=== PATIENT | male | born 1990 | race Caucasian/White ===

== ENCOUNTER 2023-07-08 07:59 | Inpatient (IN) | payer BC, SELFPAY ==
[2023-07-08 08:01] VITALS: BP 144/91; PULSE 72; TEMP 36.9; O2SAT 98; BMI 22.6
--- NOTE | 2023-07-08 08:09 | ED.C_ITS ---
HPI - Psych 2 General: Chief Complaint: Psychiatric Symptoms Stated Complaint: SI Time Seen by Provider: 07/08/23 08:01 Source: patient and EMS Mode of arrival: EMS Limitations: no limitations History of Present Illness: 33-year-old male states he has a history of depression anxiety along with bipolar states that he does not see a psychiatrist is not on any meds currently he states he had increasing severe depression anxiety last week and feels like he is just had a mental breakdown he states that last 2 days has been having severe thoughts of self-harm he does appear quite anxious here he denies any worsening proving factors. Associated symptoms: Reports depression and suicidal ideation Review of Systems 2 Const: Denies: fever(s), chills, body aches or change in appetite ENMT: Denies: throat pain or dental pain Card: Denies: chest pain Resp: Denies: dyspnea GI: Denies: abdominal pain, nausea, vomiting or diarrhea Musc: Denies: neck pain or back pain Skin/Breast: Denies: rash Neuro: Denies: headache(s) Psych: Reports: anxiety, depression and suicidal ideation Physical Exam 2 Const: COMMON NORMALS: no acute distress, patient oriented x3 and healthy appearing HENMT: COMMON NORMALS: normocephalic and atraumatic HEAD & SCALP: n ormocephalic and atraumatic Neck/C-Spine: COMMON NORMALS: full ROM and supple Chest: COMMONS NORMALS: normal inspection of the chest Resp: COMMON NORMALS: normal respiratory effort Cardio: COMMON NORMALS: regular rate RATE: regular rate Extremity: COMMON NORMALS: normal to inspection and full ROM Neuro: COMMON NORMALS: patient oriented x3, moves all extremities and no focal motor deficits Psych: COMMON NORMALS: mental status grossly normal, Normal thought process present and cooperative MOOD & AFFECT: Yes depressed mood, Yes anxious and Yes tearful THOUGHT PROCESS: Normal thought process present THOUGHT CONTENT: Yes Suicidality present Skin: COMMON NORMALS: no rashes or lesions noted and no wounds GENERAL SKIN EXAM: no rashes or lesions noted Course 2 Vital Signs: Vital signs: Vital Signs Temperature 98.5 F 07/08/23 08:01 Pulse Rate 72 07/08/23 08:01 Blood Pressure 144/91 07/08/23 08:01 Pulse Oximetry 98 07/08/23 08:01 Oxygen Delivery Me thod Room Air 07/08/23 08:01 MDM - Psych Medical Decision Making Patient presents here depression anxiety along with SI patient is medically cleared I spoke to psychiatrist will admit at this time. Medical Records I reviewed the patient's medical records. Lab Data I reviewed the patient's lab results. 07/08/23 09:05 07/08/23 09:05 Laboratory Results Urine Opiates Screen Negative ng/mL (Negative) 07/08/23 08:30 Ur Barbiturates Screen Negative ng/mL (Negative) 07/08/23 08:30 Ur Phencyclidine Scrn Negative ng/mL (Negative) 07/08/23 08:30 Ur Amphetamines Screen Negative ng/mL (Negative) 07/08/23 08:30 U Benzodiazepines Scrn Negative ng/mL (Negative) 07/08/23 08:30 Urine Cocaine Screen Negative ng/mL (Negative) 07/08/23 08:30 U Marijuana (THC) Screen Positive ng/mL (Negative) H 07/08/23 08:30 No radiology studies performed this visit Discharge Plan Discharge Patient Disposition: Admitted As Inpatient Admit Provider: Anthony Velasquez Clinical Impression: Suicidal ideation Condition: Stable Coding Level of Care Code ED [employer] for Shaylee Louie
[2023-07-08] MEDS: LORazepam 2 mg Tablet PO (08:31)
[2023-07-08] MEDS: nicotine 21 mg Patch 1 PATCH TRANSDERMA (08:37)
[2023-07-08 08:46] LABS: Amphetamines Screen Urine Negative (Negative); Barbiturates Screen Urine Negative (Negative); Benzodiazepines Screen Urine Negative (Negative); Cocaine Screen Urine Negative (Negative); Opiate Screen Urine Negative (Negative); PCP Screen Urine Negative (Negative); THC Screen Urine Positive (Negative)
[2023-07-08 09:11] LABS: Basophils % 0.3 %; Eosinophils % 0.2 %; Hematocrit 44.6 % (37-53); Lymphocytes # 1.5 10^3/uL (0.8-4.8); Lymphocytes % 16.5 %; Mean Corpuscular HGB Conc 33.4 g/dL (30-55); Mean Corpuscular Hemoglobin 30.3 pg (27-33); Mean Corpuscular Volume 90.7 fl (82-101); Mean Platelet Volume 10.2 fL (7.4-10.4); Monocytes # 0.7 10^3/uL (0.2-0.9); Monocytes % 7.4 %; Neutrophils # 6.68 10^3/uL (1.8-7.7); Neutrophils % 75.3 %; Nucleated Red Blood Cells % 0 %; Platelet Count 263 10^3/cmm (157-399); Red Blood Count 4.92 10^6/uL (3.85-5.65); Red Cell Distribution Width 13.2 % (12.1-15.1); White Blood Count 8.89 10^3/uL (3.29-11.43)
[2023-07-08 09:20] VITALS: BP 122/79; PULSE 71; RESP 17; TEMP 36.7; O2SAT 98
[2023-07-08 09:35] LABS: Alanine Aminotransferase 16 U/L (0-41); Albumin Level 4.8 g/dL (3.5-5.2); Alkaline Phosphatase 95 U/L (40-130); Aspartate Amino Transferase 19 U/L (0-40); Blood Urea Nitrogen 6 mg/dL (6-20); Calcium 8.8 mg/dL (8.5-10.5); Carbon Dioxide 25 mmol/L (22-29); Chloride 97 mmol/L (98-107); Creatinine Clr Calc Pharmacy 116.0855; Globulin 2.3 g/dL (1.3-4.6); Glucose 98 mg/dL (65-115); Osmolality Calculated 276 mOsm/kg (285-295); Sodium 134 mmol/L (136-145); Total Bilirubin 0.7 mg/dL (0.15-1.2); Total Protein 7.1 g/dL (6.6-8.7)
[2023-07-08 09:38] LABS: Acetaminophen < 5.0 ug/mL (10-30); Alcohol Level < 10 mg/dL (0-10); Salicylate < 0.3 mg/dL (3-10)
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
--- NOTE | 2023-07-08 12:37 | PC.NURSE ---
PT NICOTINE PATCH FELL OFF IN THE SHOWER AT 1235.
[2023-07-08 13:57] VITALS: BP 117/70; PULSE 73; RESP 16; TEMP 36.3; O2SAT 98
[2023-07-08] MEDS: acetaminophen 325 mg Tablet 650 MG PO (14:01)
[2023-07-08] MEDS: nicotine 4 mg lozenge MUCOUS MEM (14:48)
[2023-07-08] MEDS: ARIPiprazole 10 mg Tablet 5 MG PO (16:53)
[2023-07-08] MEDS: nicotine 2 mg Gum BUCCAL ×3 (16:54→20:47)
[2023-07-08 20:45] VITALS: BP 145/80; PULSE 81; RESP 18; TEMP 36.5; O2SAT 97
[2023-07-08] MEDS: trazodone 50 mg Tablet PO (21:57)
[2023-07-09 06:00] VITALS: BP 105/69; PULSE 67; RESP 16; TEMP 36.8; O2SAT 98
--- NOTE | 2023-07-09 07:28 | P.NPUHP_ITS ---
Providers/Chief Complaint 2 Admitting Physician: Anthony Velasquez MD Primary Care Provider: Christopher Cheung MD Chief Complaint: SI HPI NPU History of Present Illness Arden Crespo is a 33 year old male who presented to the emergency department with the following report: Chief Complaint: Psychiatric Symptoms Stated Complaint: SI Time Seen by Provider: 07/08/23 08:01 Source: patient and EMS Mode of arrival: EMS Limitations: no limitations History of Present Illness: 33-year-old male states he has a history of depression anxiety along with bipolar states that he does not see a psychiatrist is not on any meds currently he states he had increasing severe depression anxiety last week and feels like he is just had a mental breakdown he states that last 2 days has been having severe thoughts of self-harm he does appear quite anxious here he denies any worsening proving factors. Associated symptoms: Reports depression and suicidal ideation. He presented to the neuropsychiatric unit for definitive treatment of those issues. He presented today reporting: Chief complaint Patient reports experiencing depression and suicidal thoughts. History of the present complaint The patient, born on 1990, reported a history of depression and suicidal thoughts. He has not been hospitalized before for these issues but had outpatient treatment in [place] around 2010, which lasted until his son was about [age] years old. During this period, he was on medication and was seeing a counselor. The diagnosis at that time was bipolar disorder. He has been on Effexor XR and no other medication. He reported tobacco use, smoking about a pack and a half of cigarettes daily. He also reported daily marijuana use, which started about a year ago, but he had smoked off and on before that. He denied any other significant drug use in his life, including cocaine, methamphetamine, hallucinogens, and has never been to rehab or had any drug and alcohol treatment. He has no history of DUI, DWI, or any other charges related to substance use. The patient reported that his symptoms of not being able to sleep but not feeling tired and experiencing irritability started around 2016. He has had long-standing issues with depression, which he cannot remember a time without. His depression is characterized by low mood, feelings of helplessness, hopelessness, worthlessness, difficulty with sleep, low energy, and low appetite. There have been times where he felt like he was not enjoying life anymore and had suicidal thoughts, but he has never acted on these thoughts. He reported self-injurious behavior, including burning himself and hitting his head against things. The patient reported that his anxiety comes and goes, usually triggered when he is very upset with himself or very excited or anxious about something. He also reported feelings of paranoia, feeling like people were out to get him or following him. He occasionally hears and sees things. He denied having significant nightmares or flashbacks representing bad things that have happened in his life, or having intrusive thoughts that are suppressed by doing something specific. The patient is currently and has three biological children. He last saw them on January 03 of the previous year, and the lack of contact is due to conflicts with their mother. He identifies as heterosexual and his longest relationship lasted seven years. 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 He has never been to correction and has no major legal issues. He reported several broken bones but no other health problems. He denied any current thoughts of hurting himself or others and reported feeling well and happy on the day of the consultation. He recently started on Abilify and reported no side effects except for a strong craving for cigarettes. Mental health history Patient has a history of depression and suicidal thoughts. Diagnosed with bipolar disorder in 2010. Has been on Effexor XR. No history of hospitalization or outpatient treatment. Has had self-injurious behavior including burning and hitting self. Reports hearing and seeing things occasionally. Social history Patient is a smoker, consuming a pack and a half of cigarettes daily. Regular cannabis use started a year ago. No alcohol use. Has a history of using pain pills after losing health insurance. No other significant drug use. No history of rehab or drug and alcohol treatment. No legal issues related to substance use. Patient is and has three biological children. Longest job held was as a cook for six to seven years. Currently living in a trailer with and her ex [id number]. No history of correction time or major legal issues. Meds NPU Home Medications Medication Instructions Recorded Confirmed Last Taken Type No Known Home Medications 07/08/23 07/08/23 Unknown History Allergies Allergy/AdvReac Type Severity Reaction Status Date / Time No Known Allergies Allergy Verified 07/08/23 08:11 Mental Status Exam 2 MSE Comments: This is a well-nourished well-developed white male with hospital scrubs on with limited grooming and adequate eye contact. No abnormal movements except for mild psychomotor retardation. Cooperative with exam in mild distress. Speech was increased rate and normal volume. Mood described as anxious, affect congruent. Thought process linear to organized. Thought content: Patient denied any suicidal or homicidal ideations but endorsed suicidal thoughts on admission, there were no delusions reported except for paranoia and paranoia noted, he endorsed some auditory but denied visual hallucinations. Patient reports persistent depression, feelings of helplessness, hopelessness, worthlessness, low energy, low appetite, and suicidal thoughts. Reports occasional visual and auditory hallucinations. Reports anxiety that comes and goes, often associated with self-directed anger or excitement. Reports feeling paranoid and feeling like people are out to get him. No current thoughts of self-harm or harm to others. Attention and concentration appeared intact and memory was mostly reliable but none were formally tested. He is alert and oriented x3. Insight and judgment are limited, impulse control is limited. Vitals/I&O/Wt Last Vital Signs Temp 98.2 F 07/09/23 06:00 Pulse 67 07/09/23 06:00 Resp 16 07/09/23 06:00 BP 105/69 07/09/23 06:00 Pulse Ox 98 07/09/23 06:00 O2 Del Method Room Air 07/09/23 06:00 Weight last 48 hrs Weight 63.503 kg Data NPU 07/08/23 09:05 07/08/23 09:05 A&P Assessment and plan (1) Suicidal ideation: (2) Bipolar disorder: (3) Cannabis use disorder: Plan This is a 33-year-old white male who is unknown to inpatient or outpatient services with [facility] who presents with days without sleeping, irritability, depression and history of possible bipolar diagnosis open to trial of medication. Patient presents with ongoing depression, suicidal thoughts, and occasional hallucinations. History of bipolar disorder. Regular tobacco and cannabis use. Self-injurious behavior reported. 1. With history of possible bipolar disorder will initiate mood stabilizer/Abilify prior to an antidepressant. 2. Continue every 15 minute checks for safety. 3. Encourage individual, group and milieu therapy. 4. Encourage sober living treatment after discharge at the highest level of care to which he is willing to commit. 5. Will obtain collateral information. Involuntary Hold Information 2 96 Hour Hold: 96 Hour Involuntary Admission: Yes 96 Hour Hold Ending Date: 07/13/23 96 Hour Hold Ending Time: 00:01 Attestations NPU 2 Medical Necessity Statement*: Inpatient hospitalization is medically necessary and the clinically appropriate intervention at this time. We will monitor medications and make changes as indicated. He will be in the hospital for over 2 midnights. Likely length of stay 3-5 days. Coding Level of Care Code Acute Code for g Fwd Diagnoses Suicidal ideation R45.851 Bipolar disorder F31.9 Cannabis use disorder F12.90
[2023-07-09] MEDS: nicotine 21 mg Patch 1 PATCH TRANSDERMA (08:11)
[2023-07-09] MEDS: ARIPiprazole 10 mg Tablet PO (08:56)
--- NOTE | 2023-07-09 12:18 | PC.NURSE ---
Patient's nicotine fell after following shower. This nurse disposed of it appropriately.
[2023-07-09] MEDS: nicotine 2 mg Gum BUCCAL ×3 (12:19→18:06)
[2023-07-09 14:00] VITALS: BP 111/68; PULSE 69; RESP 16; TEMP 36.6; O2SAT 99
[2023-07-09 19:29] VITALS: BP 118/68; PULSE 93; RESP 20; TEMP 36.7
[2023-07-09] MEDS: quetiapine 25 mg Tablet 50 MG PO (20:08)
[2023-07-09] MEDS: nicotine 4 mg lozenge MUCOUS MEM (20:08)
[2023-07-10 06:00] VITALS: BP 101/60; PULSE 62; RESP 16; TEMP 36.7; O2SAT 98
[2023-07-10] MEDS: ARIPiprazole 10 mg Tablet PO (08:21)
[2023-07-10] MEDS: nicotine 2 mg Gum BUCCAL ×5 (08:29→18:47)
[2023-07-10] MEDS: acetaminophen 325 mg Tablet 650 MG PO (13:14)
[2023-07-10 14:00] VITALS: BP 116/72; PULSE 102; RESP 20; TEMP 36.6; O2SAT 99
--- NOTE | 2023-07-10 14:45 | W.PM.NPUPNS ---
Subjective NPU Subjective: Patient presented today reporting that he was feeling okay. He reports discussing his treatment with his and both of them feeling strongly that this was a great choice for him with the Abilify reporting that he feels better than he has for a while. We did discuss our previous conversation about Prozac or some other antidepressant and currently he reports that he is not feeling depressed to any significant degree and at this point would prefer to stick with the Abilify and then see if he still needs augmentation with an antidepressant. We discussed that being reasonable and he denied any side effects of the medication. Mental Status Exam MSE Comments: This is a well-nourished well-developed white male with hospital scrubs on with limited grooming and adequate eye contact. No abnormal movements except for mild psychomotor retardation. Cooperative with exam in mild distress. Speech was increased rate and normal volume. Mood described as a little better, affect congruent. Thought process linear to organized. Thought content: Patient denied any suicidal or homicidal ideations but endorsed suicidal thoughts on admission, there were no delusions reported except for paranoia and paranoia noted, he endorsed some auditory but denied visual hallucinations. Patient reports persistent depression, feelings of helplessness, hopelessness, worthlessness, low energy, low appetite, and suicidal thoughts. Reports occasional visual and auditory hallucinations. Reports anxiety that comes and goes, often associated with self-directed anger or excitement. Reports feeling paranoid and feeling like people are out to get him. No current thoughts of self-harm or harm to others. Attention and concentration appeared intact and memory was mostly reliable but none were formally tested. He is alert and oriented x3. Insight and judgment are limited, impulse control is limited. Vitals/I&O/Wt Last Vital Signs Temp 98.0 F 07/10/23 06:00 Pulse 62 07/10/23 06:00 Resp 16 07/10/23 06:00 BP 101/60 07/10/23 06:00 Pulse Ox 98 07/10/23 06:00 O2 Del Method Room Air 07/10/23 06:00 Data NPU 07/08/23 09:05 07/08/23 09:05 A&P Assessment and plan (1) Suicidal ideation: (2) Bipolar disorder: (3) Cannabis use disorder: Plan This is a 33-year-old white male who is unknown to inpatient or outpatient services with [facility] who presents with days without sleeping, irritability, depression and history of possible bipolar diagnosis open to trial of medication. Patient presents with ongoing depression, suicidal thoughts, and occasional hallucinations. History of bipolar disorder. Regular tobacco and cannabis use. Self-injurious behavior reported. 1. With history of possible bipolar disorder will initiate mood stabilizer/Abilify prior to an antidepressant. Initiated Abilify now at 10 mg p.o. daily. 2. Continue every 15 minute checks for safety. 3. Encourage individual, group and milieu therapy. 4. Encourage sober living treatment after discharge at the highest level of care to which he is willing to commit. 5. Will obtain collateral information. Involuntary Hold Information 96 Hour Hold: 96 Hour Involuntary Admission: Yes 96 Hour Hold Ending Date: 07/13/23 96 Hour Hold Ending Time: 00:01 Attestations U Medical Necessity Statement*: Inpatient hospitalization is medically necessary and the clinically appropriate intervention at this time. We will monitor medications and make changes as indicated. Likely length of stay 2-4 days. Coding Level of Care Code Acute Code for [facility] Fwd Diagnoses Suicidal ideation R45.851 Bipolar disorder F31.9 Cannabis use disorder F12.90
[2023-07-10 19:57] VITALS: BP 110/75; PULSE 73; RESP 16; TEMP 36.8; O2SAT 97
[2023-07-10] MEDS: quetiapine 25 mg Tablet 50 MG PO (20:52)
[2023-07-10] MEDS: nicotine 4 mg lozenge MUCOUS MEM (20:53)
[2023-07-11 06:00] VITALS: BP 142/96; PULSE 85; RESP 17; TEMP 36.6; O2SAT 97
[2023-07-11] MEDS: nicotine 2 mg Gum BUCCAL ×7 (06:26→21:18)
[2023-07-11] MEDS: ARIPiprazole 10 mg Tablet PO (08:32)
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
[2023-07-11 14:00] VITALS: BP 121/81; PULSE 103; RESP 18; TEMP 36.8; O2SAT 96
--- NOTE | 2023-07-11 19:48 | P.NPUPN_ITS ---
Subjective NPU 2 Subjective: Patient presented today reporting that he is feeling much better. He endorsed feeling fully ready for discharge tomorrow and we discussed the plan which has been arranged by the social work team and his outpatient supports. We had a long discussion about Abilify Maintena and Abilify Asimtufii as long-acting injectables to boost adherence. He reports that he will consider that but denied any side effects of the medication and reported looking forward to discharge. Mental Status Exam 2 MSE Comments: This is a well-nourished well-developed white male with hospital scrubs on with limited grooming and adequate eye contact. No abnormal movements except for mild psychomotor retardation. Cooperative with exam in mild distress. Speech was increased rate and normal volume. Mood described as feeling much better, affect congruent. Thought process linear to organized. Thought content: Patient denied any suicidal or homicidal ideations but endorsed suicidal thoughts on admission, there were no delusions reported or noted, he denied auditory or visual hallucinations. Reports feeling paranoid and feeling like people are out to get him. No current thoughts of self-harm or harm to others. Attention and concentration appeared intact and memory was mostly reliable but none were formally tested. He is alert and oriented x3. Insight and judgment are limited, impulse control is limited. Vitals/I&O/Wt Last Vital Signs Temp 98.3 F 07/11/23 14:00 Pulse 103 H 07/11/23 14:00 Resp 18 07/11/23 14:00 BP 121/81 07/11/23 14:00 Pulse Ox 96 07/11/23 14:00 O2 Del Method Room Air 07/10/23 06:00 Data NPU 07/08/23 09:05 07/08/23 09:05 A&P Assessment and plan (1) Suicidal ideation: (2) Bipolar disorder: (3) Cannabis use disorder: Plan This is a 33-year-old white male who is unknown to inpatient or outpatient services with [facility] who presents with days without sleeping, irritability, depression and history of possible bipolar diagnosis open to trial of medication. Patient presents with ongoing depression, suicidal thoughts, and occasional hallucinations. History of bipolar disorder. Regular tobacco and cannabis use. Self-injurious behavior reported. 1. Continue current medications with Abilify now at 10 mg p.o. daily. We discussed the Abilify long-acting injection for consideration given nonadherence in the past. And he said he would consider.. 2. Continue every 15 minute checks for safety. 3. Encourage individual, group and milieu therapy. 4. Encourage sober living treatment after discharge at the highest level of care to which he is willing to commit. 5. Plan for discharge tomorrow. Involuntary Hold Information 2 96 Hour Hold: 96 Hour Involuntary Admission: Yes 96 Hour Hold Ending Date: 07/13/23 96 Hour Hold Ending Time: 00:01 Attestations NPU 2 Medical Necessity Statement*: Inpatient hospitalization is medically necessary and the clinically appropriate intervention at this time. We will monitor medications and make changes as indicated. Likely length of stay 1-3 days. Coding Level of Care Code Acute Code for [facility] Fwd Diagnoses Suicidal ideation R45.851 Bipolar disorder F31.9 Cannabis use disorder F12.90
[2023-07-11 20:18] VITALS: BP 122/78; PULSE 73; RESP 16; TEMP 36.6; O2SAT 96
[2023-07-11] MEDS: quetiapine 25 mg Tablet 50 MG PO (21:18)
[2023-07-12 06:00] VITALS: BP 124/57; PULSE 54; RESP 15; TEMP 36.8; O2SAT 97
[2023-07-12] MEDS: nicotine 2 mg Gum BUCCAL ×3 (08:09→14:25)
[2023-07-12] MEDS: ARIPiprazole 10 mg Tablet PO (08:09)
--- NOTE | 2023-07-12 13:26 | W.PM.NPUDCS ---
Diagnoses at Discharge Discharge Diagnosis (1) Suicidal ideation: Status: Resolved (2) Bipolar disorder: Status: Acute (3) Cannabis use disorder: Status: Acute Reason for Visit Reason for Visit: SI Brief History: History of Present Illness Arden Crespo is a 33 year old male who presented to the emergency department with the following report: Chief Complaint: Psychiatric Symptoms Stated Complaint: SI Time Seen by Provider: 07/08/23 08:01 Source: patient and EMS Mode of arrival: EMS Limitations: no limitations History of Present Illness: 33-year-old male states he has a history of depression anxiety along with bipolar states that he does not see a psychiatrist is not on any meds currently he states he had increasing severe depression anxiety last week and feels like he is just had a mental breakdown he states that last 2 days has been having severe thoughts of self-harm he does appear quite anxious here he denies any worsening proving factors. Associated symptoms: Reports depression and suicidal ideation. He presented to the neuropsychiatric unit for definitive treatment of those issues. He presented today reporting: Chief complaint Patient reports experiencing depression and suicidal thoughts. History of the present complaint The patient, born on 1990, reported a history of depression and suicidal thoughts. He has not been hospitalized before for these issues but had outpatient treatment in [place] around 2010, which lasted until his son was about three years old. During this period, he was on medication and was seeing a counselor. The diagnosis at that time was bipolar disorder. He has been on Effexor XR and no other medication. He reported tobacco use, smoking about a pack and a half of cigarettes daily. He also reported daily marijuana use, which started about a year ago, but he had smoked off and on before that. He denied any other significant drug use in his life, including cocaine, methamphetamine, hallucinogens, and has never been to rehab or had any drug and alcohol treatment. He has no history of DUI, DWI, or any other charges related to substance use. The patient reported that his symptoms of not being able to sleep but not feeling tired and experiencing irritability started around 2016. He has had long-standing issues with depression, which he cannot remember a time without. His depression is characterized by low mood, feelings of helplessness, hopelessness, worthlessness, difficulty with sleep, low energy, and low appetite. There have been times where he felt like he was not enjoying life anymore and had suicidal thoughts, but he has never acted on these thoughts. He reported self-injurious behavior, including burning himself and hitting his head against things. The patient reported that his anxiety comes and goes, usually triggered when he is very upset with himself or very excited or anxious about something. He also reported feelings of paranoia, feeling like people were out to get him or following him. He occasionally hears and sees things. He denied having significant nightmares or flashbacks representing bad things that have happened in his life, or having intrusive thoughts that are suppressed by doing something specific. The patient is currently and has three biological children. He last saw them on January 03 of the previous year, and the lack of contact is due to conflicts with their mother. He identifies as heterosexual and his longest relationship lasted seven years. 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 He has never been to senior living and has no major legal issues. He reported several broken bones but no other health problems. He denied any current thoughts of hurting himself or others and reported feeling well and happy on the day of the consultation. He recently started on Abilify and reported no side effects except for a strong craving for cigarettes. Mental health history Patient has a history of depression and suicidal thoughts. Diagnosed with bipolar disorder in 2010. Has been on Effexor XR. No history of hospitalization or outpatient treatment. Has had self-injurious behavior including burning and hitting self. Reports hearing and seeing things occasionally. Social history Patient is a smoker, consuming a pack and a half of cigarettes daily. Regular cannabis use started a year ago. No alcohol use. Has a history of using pain pills after losing health insurance. No other significant drug use. No history of rehab or drug and alcohol treatment. No legal issues related to substance use. Patient is and has three biological children. Longest job held was as a cook for six to seven years. Currently living in a trailer with and her ex [id number]. No history of senior living time or major legal issues. Hospital Course Hospital Course He slowly acclimated to the individual, group therapies provided. Patient presented with a history fairly consistent with bipolar disorder off of medication and having significant distress. We initiated Abilify and titrated to 10 mg p.o. daily with a fairly robust response. He was having difficulty with sleep and so we added Seroquel 50 mg p.o. nightly. He did well with these medications. He worked with the social work team for appropriate outpatient resources and follow-up appointments. He had significant improvement during the stay and was able to contract for safety outside of the hospital prior to discharge. During the hospitalization, patient had routine laboratory studies which were within normal limits except for few outliers. Additionally there was a general medical evaluation which was also within normal limits and revealed no new acute processes. Discharge Summary: At the time of discharge, psychosis and lethality were denied. Mood and anxiety were well managed. Patient endorsed a plan to avoid all drugs of abuse and follow-up with the aftercare recommendations of the treatment team. Patient was evaluated and deemed to be absent credible lethality, and had achieved the maximum benefit from an inpatient hospitalization, so was discharged. Involuntary Hold Information 96 Hour Hold: 96 Hour Involuntary Admission: Yes 96 Hour Hold Ending Date: 07/13/23 96 Hour Hold Ending Time: 00:01 Mental Status Exam MSE Comments: This is a well-nourished well-developed white male with hospital scrubs on with limited grooming and adequate eye contact. No abnormal movements except for mild psychomotor retardation. Cooperative with exam in mild distress. Speech was increased rate and normal volume. Mood described as feeling much better, affect congruent. Thought process linear to organized. Thought content: Patient denied any suicidal or homicidal ideations but endorsed suicidal thoughts on admission, there were no delusions reported or noted, he denied auditory or visual hallucinations. Reports feeling paranoid and feeling like people are out to get him. No current thoughts of self-harm or harm to others. Attention and concentration appeared intact and memory was mostly reliable but none were formally tested. He is alert and oriented x3. Insight and judgment are limited, impulse control is limited. Discharge Data Studies Completed and Pending: Laboratory Results WBC 8.89 10^3/uL (3.2 9-11.43) 07/08/23 09:05 RBC 4.92 10^6/uL (3.8 5-5.65) 07/08/23 09:05 Hgb 14.90 g/dL (11.27 -16.99) 07/08/23 09:05 Hct 44.6 % (37-53) 07/08/23 09:05 MCV 90.7 fl (82-101) 07/08/23 09:05 MCH 30.3 pg (27-33) 07/08/23 09:05 MCHC 33.4 g/dL (30-55) 07/08/23 09:05 RDW 13.2 % (12.1-15.1 ) 07/08/23 09:05 Plt Count 263 10^3/cmm (157 -399) 07/08/23 09:05 MPV 10.2 fL (7.4-10.4 ) 07/08/23 09:05 Neut % (Auto) 75.3 % 07/08/23 09:05 Lymph % (Auto) 16.5 % 07/08/23 09:05 Haskell % (Auto) 7.4 % 07/08/23 09:05 Eos % (Auto) 0.2 % 07/08/23 09:05 Baso % (Auto) 0.3 % 07/08/23 09:05 Neut # (Auto) 6.68 10^3/uL (1.8 -7.7) 07/08/23 09:05 Lymph # (Auto) 1.5 10^3/uL (0.8- 4.8) 07/08/23 09:05 Haskell # (Auto) 0.7 10^3/uL (0.2- 0.9) 07/08/23 09:05 Eos # (Auto) 0.0 10^3/uL (0.0- 0.8) 07/08/23 09:05 Baso # (Auto) 0.0 10^3/uL (0.0- 0.1) 07/08/23 09:05 Nucleated RBC % (a uto) 0 % 07/08/23 09:05 Nucleated RBCs # 0.0 /100WBC 07/08/23 09:05 Sodium 134 mmol/L (136-1 45) L 07/08/23 09:05 Potassium 4.0 mmol/L (3.5-5 .1) 07/08/23 09:05 Chloride 97 mmol/L (98-107 ) L 07/08/23 09:05 Carbon Dioxide 25 mmol/L (22-29) 07/08/23 09:05 Anion Gap 16.0 (5-19) 07/08/23 09:05 BUN 6 mg/dL (6-20) 07/08/23 09:05 Creatinine 0.8 mg/dL (0.7-1. 2) 07/08/23 09:05 GFR Calculation 110.0 mL/min (90- 130) 07/08/23 09:05 Glucose 98 mg/dL (65-115) 07/08/23 09:05 Calculated Osmolal ity 276 mOsm/kg (285- 295) L 07/08/23 09:05 Calcium 8.8 mg/dL (8.5-10 .5) 07/08/23 09:05 Total Bilirubin 0.7 mg/dL (0.15-1 .2) 07/08/23 09:05 AST 19 U/L (0-40) 07/08/23 09:05 ALT 16 U/L (0-41) 07/08/23 09:05 Alkaline Phosphata se 95 U/L (40-130) 07/08/23 09:05 Total Protein 7.1 g/dL (6.6-8.7 ) 07/08/23 09:05 Albumin 4.8 g/dL (3.5-5.2 ) 07/08/23 09:05 Globulin 2.3 g/dL (1.3-4.6 ) 07/08/23 09:05 Salicylates < 0.3 mg/dL (3-10 ) L 07/08/23 09:05 Urine Opiates Scre en Negative ng/mL (N egative) 07/08/23 08:30 Acetaminophen < 5.0 ug/mL (10-3 0) L 07/08/23 09:05 Ur Barbiturates Sc reen Negative ng/mL (N egative) 07/08/23 08:30 Ur Phencyclidine S crn Negative ng/mL (N egative) 07/08/23 08:30 Ur Amphetamines Sc reen Negative ng/mL (N egative) 07/08/23 08:30 U Benzodiazepines Scrn Negative ng/mL (N egative) 07/08/23 08:30 Urine Cocaine Scre en Negative ng/mL (N egative) 07/08/23 08:30 U Marijuana (THC) Screen Positive ng/mL (N egative) H 07/08/23 08:30 Ethyl Alcohol < 10 mg/dL (0-10) 07/08/23 09:05 Vitals: Last Vital Signs Temp 98.3 F 07/12/23 06:00 Pulse 54 L 07/12/23 06:00 Resp 15 07/12/23 06:00 BP 124/57 07/12/23 06:00 Pulse Ox 97 07/12/23 06:00 O2 Del Method Room Air 07/10/23 06:00 Discharge Plan Discharge Patient Disposition: Home Condition: Stable Prescriptions: New quetiapine 25 mg Tablet 50 mg PO BEDTIME 30 Days Qty: 60 1RF aripiprazole 10 mg Tablet 10 mg PO DAILY 30 Days Qty: 30 1RF Discharge Orders: Discharge Order (Routine); Ordered 07/12/23 Ordered By: Anthony Velasquez Referrals: [facility] [Other] - 07/16/23 9:00 am (Intake appointment with Johny Lujan) Nghia Rosas MD PA [Other] (Your application was faxed to Dr. Rosas's office and they will be calling with an appointment. ) Discharge Diet: Regular Discharge Activity: Resume usual activity Patient Instructions: Quetiapine (By mouth), Aripiprazole (By mouth), Suicide Prevention (DC), Opioid Safety Discharge Attestations NPU Time Spent in Discharge Care*: less than 30 min Specific Discharge Activities: Specific discharge activities: educating patient, discussing with community case manager/social workers/dc planners, documenting/other paperwork and evaluating patient/reviewing data Coding Level of Care Code Acute Code for Chg Fwd Diagnoses Suicidal ideation R45.851 Bipolar disorder F31.9 Cannabis use disorder F12.90
[2023-07-12 14:27] VITALS: BP 124/57; PULSE 54; RESP 15; TEMP 36.8; O2SAT 97
== END 2023-07-12 15:48 | disposition home or self-care (01) | DRG 885 ==
LOC: ER 08:31 → NP 08:57
PROVIDERS: Admitting Provider Psychiatry & Neurology Psychiatry; Emergency Provider Emergency Medicine; PCP Internal Medicine; Visit Provider Psychiatry & Neurology Psychiatry
DX: F31.9 Bipolar disorder, unspecified (principal); R45.851 Suicidal ideations; F12.90 Cannabis use, unspecified, uncomplicated; F17.210 Nicotine dependence, cigarettes, uncomplicated
CPT/HCPCS: 36415; 80053; 80306; 80307; 85025; 97150; 97165; 99285